=== PATIENT | female | born 1930 ===

== ENCOUNTER 2016-10-31 09:44 | Outpatient (CLI) | payer MEDICARE, OTHER ==
[2016-10-31 10:05] LABS: #Basophils 0.1 thou/uL (0.0-0.2); #Eosinphils 0.2 thou/uL (0.0-0.7); #Lymphocytes 2.6 thou/uL (1.20-3.40); #Monocytes 0.6 thou/uL (0.11-0.59); #Neutrophils 2.4 thou/uL (1.40-6.50); %Basophils 1.4 % (0.0-1.0); %Eosinophils 2.6 % (0.0-10.0); %Lymphocytes 44.7 % (21.0-51.0); %Monocytes 10.6 % (0.0-10.0); %Neutrophils 40.7 % (42.0-75.0); Hemoglobin 10.3 g/dL (12.0-16.0); Mean Corpuscular HGB CONC 32.3 g/dL (32.0-36.0); Mean Corpuscular Hemoglobin 29.6 pg (27.0-31.0); Mean Corpuscular Volume 91.5 fl (81.0-99.0); Mean Platelet Volume 7.3 fL (7.4-10.4); Platelet Count 235 thou/uL (130-400); Red Blood Cell (RBC) Count 3.49 mill/uL (4.20-5.40); White Blood Cell (WBC) Count 5.8 thou/uL (4.8-10.8)
[2016-10-31 10:22] LABS: Hemoglobin A1c 6.8 % (4.0-6.0)
[2016-10-31 10:24] LABS: ALT (SGPT) 6 U/L (8-55); AST (SGOT) 9 U/L (5-34); Albumin 3.5 g/dL (3.4-4.8); Alkaline Phosphatase 52 U/L (40-150); Anion Gap 15 mmol/L (10-20); BUN (Urea Nitrogen) 30 mg/dL (9.8-20.1); Bilirubin, Direct 0.1 mg/dL (0.1-0.3); Bilirubin, Total 0.3 mg/dL (0.2-1.2); Calc. Creatinine Clearance 0 mL/min (70-130); Calcium 8.9 mg/dL (7.8-10.44); Carbon Dioxide 25 mmol/L (23-31); Cardiac Risk 5.4 (Less than 4.5); Chloride 99 mmol/L (98-107); Cholesterol 232 mg/dl (< 200 Desired); Estimated GFR-MDRD 64; Glucose 114 mg/dL (83-110); HDL Cholesterol 43 mg/dL (>60 Neg Risk); LDL Cholesterol, Calculated 149 mg/dL; Lipase 12 U/L (8-78); Potassium 3.9 mmol/L (3.5-5.1); Protein, Total 5.7 g/dL (6.0-8.3); Sodium 135 mmol/L (136-145); Triglycerides 201 mg/dL (Less than 150)
== END 2016-10-31 09:45 | disposition home or self-care (01) ==
LOC: NAV LABSP 09:44
PROVIDERS: ATTEND Family Medicine
DX: E11.9 Type 2 diabetes mellitus without complications (principal); J44.9 Chronic obstructive pulmonary disease, unspecified; I50.9 Heart failure, unspecified
CPT/HCPCS: 36415; 80048; 80061; 80076; 83036; 83690; 84443; 85025

== ENCOUNTER 2017-05-02 17:39 | Emergency (ER) | payer MEDICARE, OTHER ==
[2017-05-02] MEDS ORDERED: HYDROcodone/Acetaminophen 10/325 mg Tablet ONE (19:07)
[2017-05-02] MEDS ORDERED: Ondansetron HCl/PF 4 MG/2 ML Vial ONE (20:19)
[2017-05-02 20:21] LABS: #Basophils 0.1 thou/uL (0.0-0.2); #Eosinphils 0.1 thou/uL (0.0-0.7); #Lymphocytes 2.3 thou/uL (1.20-3.40); #Monocytes 0.6 thou/uL (0.11-0.59); #Neutrophils 7.9 thou/uL (1.40-6.50); %Basophils 0.8 % (0.0-1.0); %Eosinophils 0.8 % (0.0-10.0); %Monocytes 5.8 % (0.0-10.0); %Neutrophils 71.6 % (42.0-75.0); Hemoglobin 11.5 g/dL (12.0-16.0); Mean Corpuscular HGB CONC 33.8 g/dL (32.0-36.0); Mean Corpuscular Hemoglobin 30.5 pg (27.0-31.0); Mean Corpuscular Volume 90.4 fl (81.0-99.0); Mean Platelet Volume 8.3 fL (7.4-10.4); Platelet Count 235 thou/uL (130-400); RBC Distribution Width 12.4 % (11.5-14.5); Red Blood Cell (RBC) Count 3.76 mill/uL (4.20-5.40)
[2017-05-02 20:28] LABS: Prothrombin Time 13.3 SEC (12.0-14.7)
[2017-05-02 21:09] LABS: ALT (SGPT) 12 U/L (8-55); AST (SGOT) 13 U/L (5-34); Albumin 3.8 g/dL (3.4-4.8); Alkaline Phosphatase 59 U/L (40-150); Anion Gap 17 mmol/L (10-20); BUN (Urea Nitrogen) 28 mg/dL (9.8-20.1); Bilirubin, Total 0.4 mg/dL (0.2-1.2); Calc. Creatinine Clearance 0 mL/min (70-130); Calcium 9.4 mg/dL (7.8-10.44); Carbon Dioxide 26 mmol/L (23-31); Chloride 92 mmol/L (98-107); Estimated GFR-MDRD 60; Globulin 2.7 g/dL (2.4-3.5); Glucose 173 mg/dL (83-110); Potassium 4.1 mmol/L (3.5-5.1); Protein, Total 6.5 g/dL (6.0-8.3); Sodium 131 mmol/L (136-145)
--- NOTE | 2017-05-02 21:17 | RAD ---
THREE VIEWS LEFT KNEE 05/02/17 HISTORY: Fall at [facility] with left knee pain below prosthetic implant. AP, lateral and oblique views left knee is obtained. 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 A medial femoral plate is also seen compatible with old injury. There is an acute left proximal fibular metaphyseal fracture. There is also a metadiaphyseal proximal comminuted tibial fracture extending from the arthroplasty inferiorly, both medially and laterally. The comminuted fracture fragments are mildly displaced. IMPRESSION: Proximal left fibular and tibial fractures. POS: [facility]
--- NOTE | 2017-05-02 21:31 | RAD ---
AP VIEW LEFT HIP 05/02/17 HISTORY: Fall with left tibial fracture. AP view left hip demonstrates vascular calcification of the left common femoral and superficial femor al arteries. No evidence of acute fractures or bony lesions seen. IMPRESSION: Unremarkable AP view left hip. POS: [facility]
--- NOTE | 2017-05-02 21:53 | RAD ---
TWO VIEWS LEFT TIBIA AND FIBULA 05/02/17 HISTORY: Patient with proximal tibial fracture. AP and lateral views left tibia and fibula demonstrate a left knee arthroplasty. There is a comminute d fracture in the proximal left tibial metaphysis. Mildly displaced fracture also seen in the proxima l left fibular metaphysis. Please seen left knee dictation. The rest of the left tibia and fibula dem onstrate no evidence of acute fractures. Some vascular calcifications including venous calcifications seen. IMPRESSION: 1. Comminuted proximal left tibial fracture. 2. Proximal left fibular fracture. POS: [facility]
== END 2017-05-02 22:18 | disposition short-term general hospital (02) ==
LOC: NAV ERS 17:39
DX: S82.102A Unspecified fracture of upper end of left tibia, initial encounter for closed fracture (principal); S82.832A Other fracture of upper and lower end of left fibula, initial encounter for closed fracture; E11.9 Type 2 diabetes mellitus without complications; E03.9 Hypothyroidism, unspecified; J44.9 Chronic obstructive pulmonary disease, unspecified; F32.9 Major depressive disorder, single episode, unspecified; I50.9 Heart failure, unspecified; Z79.82 Long term (current) use of aspirin; Z79.899 Other long term (current) drug therapy; X58.XXXA Exposure to other specified factors, initial encounter
CPT/HCPCS: 80053; 85025; 85610; 85730; 94760; 96374; 96375; J2270; J2405

== ENCOUNTER 2017-12-23 13:11 | Emergency (ER) | payer MEDICARE, OTHER ==
[2017-12-23 13:53] LABS: #Basophils 0.1 thou/uL (0.0-0.2); #Lymphocytes 1.7 thou/uL (1.20-3.40); #Neutrophils 7.8 thou/uL (1.40-6.50); %Basophils 0.6 % (0.0-1.0); %Eosinophils 0.2 % (0.0-10.0); %Lymphocytes 15.8 % (21.0-51.0); %Monocytes 9.1 % (0.0-10.0); %Neutrophils 74.4 % (42.0-75.0); Hemoglobin 11.3 g/dL (12.0-16.0); Mean Corpuscular HGB CONC 32.2 g/dL (32.0-36.0); Mean Corpuscular Hemoglobin 29.3 pg (27.0-31.0); Mean Platelet Volume 7.2 fL (7.4-10.4); Platelet Count 313 thou/uL (130-400); RBC Distribution Width 13.2 % (11.5-14.5); Red Blood Cell (RBC) Count 3.87 mill/uL (4.20-5.40); White Blood Cell (WBC) Count 10.5 thou/uL (4.8-10.8)
[2017-12-23 14:11] LABS: ALT (SGPT) 8 U/L (8-55); AST (SGOT) 10 U/L (5-34); Albumin 3.8 g/dL (3.4-4.8); Alkaline Phosphatase 48 U/L (40-150); Anion Gap 17 mmol/L (10-20); BUN (Urea Nitrogen) 30 mg/dL (9.8-20.1); Bilirubin, Total 0.7 mg/dL (0.2-1.2); CK (CPK) 24 U/L (29-168); Calc. Creatinine Clearance 0 mL/min (70-130); Calcium 9.5 mg/dL (7.8-10.44); Carbon Dioxide 29 mmol/L (23-31); Chloride 87 mmol/L (98-107); Estimated GFR-MDRD 52; Globulin 2.6 g/dL (2.4-3.5); Glucose 122 mg/dL (83-110); Potassium 3.3 mmol/L (3.5-5.1); Protein, Total 6.4 g/dL (6.0-8.3); Sodium 130 mmol/L (136-145)
[2017-12-23 14:12] LABS: CKMB 0.2 ng/mL (0-6.6); Troponin I Less than 0.010 ng/mL (< 0.028)
== END 2017-12-23 16:10 ==
LOC: NAV ERS 13:11
DX: R41.82 Altered mental status, unspecified (principal); E11.9 Type 2 diabetes mellitus without complications; E03.9 Hypothyroidism, unspecified; E63.9 Nutritional deficiency, unspecified; F03.90 Unspecified dementia, unspecified severity, without behavioral disturbance, psychotic disturbance, mood disturbance, and anxiety; F32.9 Major depressive disorder, single episode, unspecified; J44.9 Chronic obstructive pulmonary disease, unspecified; I50.9 Heart failure, unspecified; I47.2 Ventricular tachycardia; K21.9 Gastro-esophageal reflux disease without esophagitis; M19.90 Unspecified osteoarthritis, unspecified site; Z79.82 Long term (current) use of aspirin; Z79.899 Other long term (current) drug therapy
CPT/HCPCS: 80053; 82553; 84484; 85025; 93005

== ENCOUNTER 2019-06-05 18:00 | Emergency (ER) | payer MEDICARE, OTHER ==
--- NOTE | 2019-06-05 18:48 | RAD ---
Radiograph left shoulder 3 views: HISTORY: 89-year-old female status post acute left shoulder injury from fall. FINDINGS: No dislocation. No acute fracture identified. IMPRESSION: No acute fracture identified.
== END 2019-06-05 19:06 ==
LOC: NAV ERS 18:00
DX: S40.012A Contusion of left shoulder, initial encounter (principal); F41.9 Anxiety disorder, unspecified; F03.90 Unspecified dementia, unspecified severity, without behavioral disturbance, psychotic disturbance, mood disturbance, and anxiety; E11.9 Type 2 diabetes mellitus without complications; I50.9 Heart failure, unspecified; E78.5 Hyperlipidemia, unspecified; J44.9 Chronic obstructive pulmonary disease, unspecified; W19.XXXA Unspecified fall, initial encounter

== ENCOUNTER 2019-07-20 21:31 | Emergency (ER) | payer MEDICARE, OTHER ==
[2019-07-20] MEDS ORDERED: Sulfameth/Trimethoprim DS 800-160mg TAB ONE (21:43)
[2019-07-20] MEDS ORDERED: cefTRIAXone\\ROCEPHIN 1 GM VIAL ONE (21:51)
[2019-07-20] MEDS ORDERED: Adacel (T-DAP) 0.5 ML SYRINGE ONE (21:51)
[2019-07-20] MEDS ORDERED: Lidocaine 1% (PF) 30 ML VIAL ONE (21:51)
--- NOTE | 2019-07-20 23:04 | RAD ---
THREE VIEWS LEFT HAND: History: Left hand swelling. FINDINGS: There is osteoarthritis involving the interphalangeal joint as well as involving the carpal bones and greatest involving the first carpal metacarpal joint. 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 Osteopenia is present. Scaphoid bone appears diminutive with s clerosis seen at the waist of the scaphoid bone, probably reflective of prior injury. Calcification s een in the region of the radiocarpal joint as well as distal to the ulna which could be related chond rocalcinosis. No obvious acute fracture is seen and there is no dislocation. Soft tissue swelling is seen at the dorsal aspect of the hand. IMPRESSION: 1. Osteopenia and osteoarthritis. 2. Findings likely related to remote injury involving the scaphoid bone. 3. 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 4. Subcutaneous soft tissue swelling dorsal aspect of the hand. POS: [facility]
== END 2019-07-20 22:26 ==
LOC: NAV ERS 21:31
DX: L03.114 Cellulitis of left upper limb (principal); S60.512A Abrasion of left hand, initial encounter; E11.9 Type 2 diabetes mellitus without complications; I11.0 Hypertensive heart disease with heart failure; I50.9 Heart failure, unspecified; I25.10 Atherosclerotic heart disease of native coronary artery without angina pectoris; I73.9 Peripheral vascular disease, unspecified; F41.9 Anxiety disorder, unspecified; F03.90 Unspecified dementia, unspecified severity, without behavioral disturbance, psychotic disturbance, mood disturbance, and anxiety; M81.0 Age-related osteoporosis without current pathological fracture; E03.9 Hypothyroidism, unspecified; Z79.891 Long term (current) use of opiate analgesic; Z79.899 Other long term (current) drug therapy
CPT/HCPCS: 90471; 90715; 96372; J0696; J2001